=== PATIENT | female | born 1995 | race Asian ===

== ENCOUNTER 2017-01-02 18:03 | Inpatient (IN) | payer BC, OTHER ==
[2017-01-02] MEDS ORDERED: SODIUM CHLORIDE 0.9% 1,000 ML IV STA ×2 (18:35)
--- NOTE | 2017-01-02 18:38 | ED ---
General Adult HPI - General Chief complaint: Abdominal Pain Stated complaint: female Time Seen by Provider: 01/02/17 18:24 Source: patient, RN notes reviewed Mode of arrival: ambulatory Limitations: no limitations - History of Present Illness Initial comments: Patient is a 21-year-old female who presents emergency room today with chief complaint of a possible tubo-ovarian abscess. She states that he had an outpatient CT performed today at [facility]. She states she was called by the family doctor advised come here to the emergency room. Patient does admit pain started approximately a week ago. She describes it as sharp. Currently rates as 6/10. States she's currently comfortable at this time does not want pain medication. She does admit some nausea. Admits to a fever yesterday. Denies any other complaints. Patient denies any recent chills, shortness of breath, chest pain, back pain, vomiting, numbness or tingling, dysuria or hematuria, constipation or diarrhea, headaches or visual changes, or any other complaints. - Related Data Home Medications Medication Instructions Recorded Confirmed No Known Home Medications [No 01/02/17 01/02/17 Known Home Medications] Allergies Allergy/AdvReac Type Severity Reaction Status Date / Time No Known Allergies Allergy Verified 01/02/17 19:20 Review of Systems ROS Statement: Those systems with pertinent positive or pertinent negative responses have been documented in the HPI. ROS Other: All systems not noted in ROS Statement are negative. Past Medical History Past Medical History: No Reported History History of Any Multi-Drug Resistant Organisms: None Reported Past Surgical History: No Surgical Hx Reported Past Anesthesia/Blood Transfusion Reactions: No Reported Reaction Past Psychological History: No Psychological Hx Reported Smoking Status: Current every day smoker Past Drug Use History: None Reported - Past Family History Mother Family Medical History: No Reported History General Exam - General Exam Comments Initial Comments: General: The patient is awake and alert, in no distress, and does not appear acutely ill. Eye: Pupils are equal, round and reactive to light, extra-ocular movements are intact. No nystagmus. There is normal conjunctiva bilaterally. No signs of icterus. Ears, nose, mouth and throat: There are moist mucous membranes and no oral lesions. Neck: The neck is supple, there is no tenderness or JVD. Cardiovascular: There is a regular rate and rhythm. No murmur, rub or gallop is appreciated. Respiratory: Lungs are clear to auscultation, respirations are non-labored, breath sounds are equal. No wheezes, stridor, rales, or rhonchi. Gastrointestinal: Normal. Exam. Normal bowel sounds. Abdomen soft on palpation. Patient does have mild tenderness on the right side of abdomen. No rebound tenderness. No guarding. Musculoskeletal: Normal ROM, no tenderness. Strength 5/5. Sensation intact. Pulses equal bilaterally 2+. Neurological: A&O x 3. CN II-XII intact, There are no obvious motor or sensory deficits. Coordination appears grossly intact. Speech is normal. Skin: Skin is warm and dry and no rashes or lesions are noted. Psychiatric: Cooperative, appropriate mood & affect, normal judgment. Limitations: no limitations Course Vital Signs 01/02/17 01/02/17 18:20 19:09 Temperature 98.3 F 98.3 F Pulse Rate 129 H 104 H Respiratory 20 18 Rate Blood Pressure 115/65 130/79 O2 Sat by Pulse 100 100 Oximetry Medical Decision Making - Medical Decision Making Patient's CAT scan from [facility] was reviewed 1. Inflammatory process within the pelvis with a few rim enhancing fluid collections, largest measuring 6 cm wide in the cul-de-sac with a U-shaped configuration, largest towards the right. 2. Portion of the normal air-filled appendix is seen. The entirety appendix not visualized. 3. Clinical correlation recommended to rule out etiology with some differential considerations including PID and tubo-ovarian abscess. Given her acute diverticulitis is considered less likely as portions of the appendix are visualized. Patient's ultrasound reviewed and does show cystic structure on the right. Good collateral flow. Results were discussed with patient. Her labs been reviewed. Patient will continue on antibiotics of both cefoxitin and doxycycline covering for possible PID related infection. Case was discussed with attending physician discuss case with admitting physician Dr. Marrero will admit the patient with consult from [facility]. Patient is seeing both Dr. Mariscal in the past. - Lab Data Result diagrams: 01/02/17 19:00 01/02/17 19:00 Lab Results 01/02/17 01/02/17 01/02/17 Range/Units 18:45 18:45 19:00 WBC 7.3 (3.8-10.6) k/uL RBC 4.43 (3.80-5.40) m/uL Hgb 9.9 L (11.4-16.0) gm/dL Hct 32.4 L (34.0-46.0) % MCV 73.1 L (80.0-100.0) fL MCH 22.3 L (25.0-35.0) pg MCHC 30.5 L (31.0-37.0) g/dL RDW 13.7 (11.5-15.5) % Plt Count 330 (150-450) k/uL Neutrophils % 72 % Lymphocytes % 19 % Monocytes % 5 % Eosinophils % 2 % Basophils % 0 % Neutrophils # 5.3 (1.3-7.7) k/uL Lymphocytes # 1.4 (1.0-4.8) k/uL Monocytes # 0.4 (0-1.0) k/uL Eosinophils # 0.1 (0-0.7) k/uL Basophils # 0.0 (0-0.2) k/uL Hypochromasia Marked Microcytosis Slight Sodium (137-145) mmol/L Potassium (3.5-5.1) mmol/L Chloride (98-107) mmol/L Carbon Dioxide (22-30) mmol/L Anion Gap mmol/L BUN (7-17) mg/dL Creatinine (0.52-1.04) mg/dL Est GFR (MDRD) Af Amer (>60 ml/min/1.73 sqM) Est GFR (MDRD) Non-Af (>60 ml/min/1.73 sqM) Glucose (74-99) mg/dL Calcium (8.4-10.2) mg/dL Total Bilirubin (0.2-1.3) mg/dL AST (14-36) U/L ALT (9-52) U/L Alkaline Phosphatase (38-126) U/L Total Protein (6.3-8.2) g/dL Albumin (3.5-5.0) g/dL Urine Color Yellow Urine Appearance Clear (Clear) Urine pH 6.0 (5.0-8.0) Ur Specific [place] >1.050 H (1.001-1.035) Urine Protein Trace H (Negative) Urine Glucose (UA) Negative (Negative) Urine Ketones Negative (Negative) Urine Blood Moderate H (Negative) Urine Nitrite Negative (Negative) Urine Bilirubin Negative (Negative) Urine Urobilinogen <2.0 (<2.0) mg/dL Ur Leukocyte Esterase Negative (Negative) Urine RBC 11 H (0-5) /hpf Urine WBC 4 (0-5) /hpf Ur Squamous Epith Cells 1 (0-4) /hpf Urine HCG, Qual Not Detected (Not Detectd) 01/02/17 Range/Units 19:00 WBC (3.8-10.6) k/uL RBC (3.80-5.40) m/uL Hgb (11.4-16.0) gm/dL Hct (34.0-46.0) % MCV (80.0-100.0) fL MCH (25.0-35.0) pg MCHC (31.0-37.0) g/dL RDW (11.5-15.5) % Plt Count (150-450) k/uL Neutrophils % % Lymphocytes % % Monocytes % % Eosinophils % % Basophils % % Neutrophils # (1.3-7.7) k/uL Lymphocytes # (1.0-4.8) k/uL Monocytes # (0-1.0) k/uL Eosinophils # (0-0.7) k/uL Basophils # (0-0.2) k/uL Hypochromasia Microcytosis Sodium 138 (137-145) mmol/L Potassium 4.0 (3.5-5.1) mmol/L Chloride 103 (98-107) mmol/L Carbon Dioxide 28 (22-30) mmol/L Anion Gap 7 mmol/L BUN 9 (7-17) mg/dL Creatinine 0.76 (0.52-1.04) mg/dL Est GFR (MDRD) Af Amer >60 (>60 ml/min/1.73 sqM) Est GFR (MDRD) Non-Af >60 (>60 ml/min/1.73 sqM) Glucose 82 (74-99) mg/dL Calcium 8.7 (8.4-10.2) mg/dL Total Bilirubin 0.3 (0.2-1.3) mg/dL AST 19 (14-36) U/L ALT 17 (9-52) U/L Alkaline Phosphatase 66 (38-126) U/L Total Protein 7.9 (6.3-8.2) g/dL Albumin 3.7 (3.5-5.0) g/dL Urine Color Urine Appearance (Clear) Urine pH (5.0-8.0) Ur Specific [place] (1.001-1.035) Urine Protein (Negative) Urine Glucose (UA) (Negative) Urine Ketones (Negative) Urine Blood (Negative) Urine Nitrite (Negative) Urine Bilirubin (Negative) Urine Urobilinogen (<2.0) mg/dL Ur Leukocyte Esterase (Negative) Urine RBC (0-5) /hpf Urine WBC (0-5) /hpf Ur Squamous Epith Cells (0-4) /hpf Urine HCG, Qual (Not Detectd) Disposition Clinical Impression: Tubo-ovarian abscess Disposition: ADMITTED IP TO THIS HOSP Condition: Stable Time of Disposition: 20:01
[2017-01-02 19:15] LABS: Appearance,Urine Clear (Clear); Bilirubin,Urine Negative (Negative); Glucose,Urine (UA) Negative (Negative); Ketones,Urine Negative (Negative); Leukocyte Esterase,Urine Negative (Negative); Nitrite,Urine Negative (Negative); Particle Count 1052; Protein,Urine Trace (Negative); RBC,Urine 11 /hpf (0-5); Squamous Epithelial Cell,Urine 1 /hpf (0-4); UA Billing (MACRO vs. MICRO) MICRO; Urobilinogen,Urine <2.0 mg/dL (<2.0); WBC,Urine 4 /hpf (0-5)
[2017-01-02 19:17] LABS: Specific Gravity,Urine >1.050 (1.001-1.035)
[2017-01-02] MEDS ORDERED: ONDANSETRON 4 MG/2 ML VIAL IVP STA (19:20)
[2017-01-02] MEDS ORDERED: HYDROmorphone 1 MG/ML 1 ML SYRINGE IVP STA (19:20)
[2017-01-02 19:23] LABS: Basophils % (A) 0 %; CH 22.1; CHCM 30.4; Eosinophils # (A) 0.1 k/uL (0-0.7); Eosinophils % (A) 2 %; HCT 32.4 % (34.0-46.0); HDW 2.72; HGB 9.9 gm/dL (11.4-16.0); Hypochromasia Marked; Luc # (Auto) 0.15; Luc % (Auto) 2; Lymphocytes # (A) 1.4 k/uL (1.0-4.8); Lymphocytes % (A) 19 %; MCH 22.3 pg (25.0-35.0); MCHC 30.5 g/dL (31.0-37.0); MCV 73.1 fL (80.0-100.0); Mean Platelet Volume 6.5; Microcytosis Slight; Monocytes # (A) 0.4 k/uL (0-1.0); Monocytes % (A) 5 %; Neutrophils # (A) 5.3 k/uL (1.3-7.7); Neutrophils % (A) 72 %; RBC 4.43 m/uL (3.80-5.40); RDW 13.7 % (11.5-15.5); WBC 7.3 k/uL (3.8-10.6); WBC (Perox) 7.54
[2017-01-02 19:25] LABS: ALT 17 U/L (9-52); AST 19 U/L (14-36); Alkaline Phosphatase 66 U/L (38-126); Anion Gap 7 mmol/L; Blood Urea Nitrogen 9 mg/dL (7-17); Calcium 8.7 mg/dL (8.4-10.2); Carbon Dioxide 28 mmol/L (22-30); Chloride 103 mmol/L (98-107); Glucose 82 mg/dL (74-99); Non-African American GFR(MDRD) >60 (>60 ml/min/1.73 sqM); Sodium 138 mmol/L (137-145); Total Bilirubin 0.3 mg/dL (0.2-1.3); Total Protein 7.9 g/dL (6.3-8.2)
[2017-01-02] MEDS ORDERED: DOXYCYCLINE 100 MG in SODIUM CHLORIDE 0.9% 100 ML IVPB ONE (20:00)
[2017-01-02] MEDS ORDERED: NALOXONE 0.4 MG/ML 1 ML VIAL IV PRN (20:13)
[2017-01-02] MEDS ORDERED: SODIUM CHLORIDE 0.9% 1,000 ML IV ONE (20:13)
[2017-01-02] MEDS ORDERED: ONDANSETRON 4 MG/2 ML VIAL IVP PRN (20:13)
[2017-01-02] MEDS ORDERED: ACETAMINOPHEN TAB 325 MG TAB PO PRN (20:13)
--- NOTE | 2017-01-02 20:27 | US ---
EXAMINATION TYPE: US TRANSVAGINAL DATE OF EXAM: 01/02/2017 7:54 PM COMPARISON: NONE CLINICAL HISTORY: 21 yo with pain. UPT/B-HCG unknown at time of imaging. TECHNIQUE: Transvaginal (TV) Date of LMP: 12/28/2016 EXAM MEASUREMENTS: Uterus: 8.4 x 4.7 x 6.2 cm Endometrial Stripe: 0.7 cm Right Ovary: 4.7 x 2.7 x 3.8 cm Left Ovary: 3.2 x 1.3 x 1.3 cm 1. Uterus: Anteverted wnl 2. Endometrium: wnl. No focal endometrial findings. 3. Right Ovary: Two complex cystic areas visualized within the right ovary, largest measuring 2.1 x 1.7 x 1.1 cm. Adjacent to the right ovary within the right adnexa, there is a complex area visualized measuring 3.7 x 2.6 x 6.2 cm, with low-level echoes scattered within the area and with no Doppler p erfusion of the area. 4. Left Ovary: wnl Spectral, color and waveform doppler imaging shows good arterial and venous flow within the ovaries ; there is no evidence for ovarian torsion. 5. Bilateral Adnexa: See above 6. Posterior cul-de-sac: Moderate amount of free fluid visualized IMPRESSION: ASSUMING NEGATIVE UPT, SONOGRAPHIC FINDINGS POINT TOWARD RUPTURED RIGHT OVARIAN FUNCTIONAL CYST WITH MILDLY COMPLEX CULDESAC FLUID R > L, SUGGESTING HEMOPERITONEUM.
[2017-01-02 21:58] VITALS: BMI 21.3
[2017-01-02] MEDS ORDERED: VENLAFAXINE HCL ER 150 MG CAP PO SCH (22:45)
[2017-01-02] MEDS ORDERED: VENLAFAXINE 150 MG PO SCH (23:00)
[2017-01-02] MEDS: HYDROmorphone 1 MG/ML 1 ML SYRINGE IV PRN (23:18)
[2017-01-03] MEDS: HYDROmorphone 1 MG/ML 1 ML SYRINGE IV PRN ×3 (07:39→20:44)
[2017-01-03] MEDS: DOXYCYCLINE 100 MG in SODIUM CHLORIDE 0.9% 100 ML IVPB SCH ×2 (09:37→20:43)
[2017-01-03] MEDS: VENLAFAXINE HCL ER 75 MG CAP PO SCH (09:37)
--- NOTE | 2017-01-03 14:00 | P.OBCN ---
History of Present Illness Consult date: 01/03/17 Requesting physician: Debora Marrero Reason for consult: pelvic pain, ovarian cyst Chief complaint: She has had right upper quadrant pain for 7-10 days History of present illness: 21 year old presented to her PCP with RUQ pain. Her PCP sent her for a CT scan at [facility]. I do not have that report to review but US at [facility] showed right ovarian cyst, probably ruptured with some complex fluid. She was admitted for possible tubovarian abscess vs ruptured hemorrhagic cyst. She has been on IV antibiotics since admission. Her pain is improving, she has been and remains afebrile. Her pain was never in her pelvis though, was only in the RUQ and intermittent. No problems with bowel movements or urination and she is on an ocp. No new sexual partners. Review of Systems All systems: negative Constitutional: Denies chills, Denies fever Eyes: denies blurred vision, denies pain Ears, nose, mouth and throat: Denies headache, Denies sore throat Cardiovascular: Denies chest pain, Denies shortness of breath Respiratory: Denies cough Gastrointestinal: Denies abdominal pain, Denies diarrhea, Denies nausea, Denies vomiting Genitourinary: Denies dysuria, Denies hematuria Musculoskeletal: Denies myalgias Integumentary: Denies pruritus, Denies rash Neurological: Denies numbness, Denies weakness Psychiatric: Denies anxiety, Denies depression Endocrine: Denies fatigue, Denies weight change Past Medical History Past Medical History: No Reported History History of Any Multi-Drug Resistant Organisms: None Reported Past Surgical History: No Surgical Hx Reported Past Anesthesia/Blood Transfusion Reactions: No Reported Reaction Past Psychological History: ADD/ADHD, Anxiety, Depression Additional Psychological History / Comment(s): monitored by Dr. Marrero Smoking Status: Current every day smoker Past Alcohol Use History: None Reported Past Drug Use History: None Reported - Past Family History Father Family Medical History: No Reported History Mother Family Medical History: No Reported History Medications and Allergies Home Medications Medication Instructions Recorded Confirmed Type Dextroamphetamine/Amphetamine 30 mg PO QAM 01/02/17 01/02/17 History [Adderall Xr] Ibuprofen [Motrin] 600 mg PO Q8HR PRN 01/02/17 01/02/17 History Venlafaxine HCl ER [Effexor Xr] 75 mg PO DAILY 01/02/17 01/02/17 History Venlafaxine HCl ER [Effexor Xr] 150 mg PO DAILY 01/02/17 01/02/17 History Norgestimate-Ethinyl Estradiol 01/03/17 History [Sprintec 28 Day Tablet] Norgestimate-Ethinyl Estradiol 1 01/03/17 History [Sprintec 28 Day Tablet] Allergies Allergy/AdvReac Type Severity Reaction Status Date / Time No Known Allergies Allergy Verified 01/02/17 19:20 Exam Osteopathic Statement: *. No significant issues noted on an osteopathic structural exam other than those noted in the History and Physical/Consult. - Vital Signs Vital signs: Vital Signs Temp Pulse Pulse Pulse Pulse Resp BP 01/03/17 12:27 97.6 F 85 01/03/17 08:23 97.3 F L 96 12 01/03/17 04:00 70 16 01/03/17 00:00 98.0 F 98 16 01/02/17 21:34 98.8 F 90 18 01/02/17 21:30 98.8 F 90 18 01/02/17 20:42 97.5 F L 109 H 16 119/70 BP Pulse Ox 01/03/17 12:27 108/60 95 01/03/17 08:23 104/67 96 01/03/17 04:00 01/03/17 00:00 111/64 98 01/02/17 21:34 116/68 98 01/02/17 21:30 116/68 98 01/02/17 20:42 97 Intake and Output 01/02/17 01/03/17 01/03/17 22:59 06:59 14:59 Intake Total 240 Balance 240 Intake: Oral 240 Other: Voiding Method Toilet # Voids 1 Weight 57.2 kg Heart: RRR Lungs: CTAB ABdomen: soft, nontender to palpation, no rebound or rigidity, no bloating Extremeties: neg agus's Results Result Diagrams: 01/02/17 19:00 01/02/17 19:00 Abnormal Lab Results - Last 24 Hours (Table) 01/03/17 Range/Units 12:36 C-Reactive Protein 37.0 H (<10.0) mg/L Assessment and Plan (1) Tubo-ovarian abscess Status: Acute Plan: 1. This could be a tubovarian absess or ruptured ovarian cyst. Current treatment is IV antibiotics and pain medication. I would recommend to continue this course until 24-48 hours of IV abx are in. After this, pain meds and antibiotics can be changed to oral and she can follow up with me outpatient at that point in about 7-10 days.
[2017-01-03] MEDS ORDERED: IBUPROFEN 600 MG TAB PO PRN (20:22)
--- NOTE | 2017-01-03 20:23 | P.HPIM ---
History of Present Illness H&P Date: 01/03/17 Chief Complaint: Pelvic pain, abnormal CAT scan of the pelvis This is a pleasant 21-year-old lady well-known to my practice, she has underlying history off YULIANA, and iron deficiency anemia, With 1 para 1 admitted secondary to abnormal CAT scan. She presented to our office on one day prior to admission for which she had pelvic pain for approximately one and half weeks, she was given Motrin for pain, and was subsequently investigated using the CAT scan, patient has had low-grade fever, pain is nitrite lower quadrant area, she has postcoital pain without any vaginal discharge, her last Pap smear was performed by Dr. Flores approximately one and half years ago after her last delivery, she assumes to have one partner without any prior history of STDs in the past. CAT scan imaging performed at [facility] shows inflammatory reaction noted with rim-enhancing lesion largest measuring 6 cm in the posterior cul-de-sac, larger towards the right differential diagnosis includes tubal via an abscess, normal appendix noted on CAT scan. Scan scan report is in the chart review. She was subsequently notified of these imaging studies and was sent to [facility] for the admission. In the emergency room I have notified the ER doctor regarding the plan admission requested cultures to be done along with her pelvic examination, ultrasound of the pelvic cavity shows 2 complex cyst areas within the right ovary largest measuring 2.1 x 1.7 x 1.1 cm and adjacent to the right ovary within the right adnexa complex mass measuring 3.7 x 2.6 x 6.2 cm bit low level close scattered within the the area, with Doppler no perfusion of the area left ovary shows good arterial and venous flow within the ovaries no evidence of ovarian torsion WBC count is normal no cultures were obtained from the emergency room for GC chlamydia, urine GC chlamydia was requested in the floor, after the backs were started. CRP and sed rate was requested, urinalysis is unremarkable Review of Systems Constitutional: Reports as per HPI, Denies anorexia, Denies chills, Denies chronic headaches, Denies chronic pain, Denies daytime sleepiness, Denies fatigue, Denies fever, Denies lethargy, Denies malaise, Denies night sweats, Denies poor appetite, Denies sweats, Denies weakness, Denies weight gain, Denies weight loss Ears, nose, mouth and throat: Reports as per HPI, Denies ant. neck pain, Denies bleeding gums, Denies dental pain, Denies dysphagia, Denies epistaxis, Denies headache, Denies hoarseness, Denies mouth pain, Denies nasal congestion, Denies nasal discharge, Denies neck fullness/pressure, Denies neck lump, Denies nose pain, Denies odynophagia, Denies post-nasal drip, Denies sinus pain, Denies sinus pressure, Denies swelling in mouth, Denies swelling in throat, Denies sore throat, Denies vertigo, Denies voice changes Cardiovascular: Reports as per HPI, Denies chest pain, Denies claudication, Denies decreased exercise tolerance, Denies dyspnea on exertion, Denies edema, Denies high blood pressure, Denies irregular heart beat, Denies leg edema, Denies lightheadedness, Denies orthopnea, Denies palpitations, Denies paroxysmal nocturnal dyspnea, Denies phlebitis, Denies rapid heart beat, Denies shortness of breath, Denies syncope Respiratory: Reports as per HPI, Denies congestion, Denies cough, Denies cough with sputum, Denies dyspnea, Denies excessive sputum, Denies hemoptysis, Denies home oxygen, Denies pain, Denies pain on inspiration, Denies pleurisy, Denies respiratory infections, Denies sleep apnea, Denies snoring, Denies wheezing Gastrointestinal: Reports as per HPI, Denies abdominal pain, Denies belching, Denies bloating, Denies BRBPR, Denies change in bowel habits, Denies coffee ground emesis, Denies constipation, Denies diarrhea, Denies dyspepsia, Denies early satiety, Denies excessive gas, Denies heartburn, Denies hematemesis, Denies hematochezia, Denies indigestion, Denies jaundice, Denies lactose intolerance, Denies loss of appetite, Denies melena, Denies nausea, Denies vomiting Genitourinary: Reports as per HPI, Denies abnormal vaginal bleeding, Denies decreased libido, Denies difficulty conceiving, Denies difficulty voiding, Denies dysmenorrhea, Denies dyspareunia, Denies dysuria, Denies flank pain, Denies genital sores, Denies hematuria, Denies hot flashes, Denies incomplete emptying, Denies kidney stones, Denies menorrhagia, Denies mixed incontinence, Denies nocturia, Denies pelvic pain, Denies post void dribbling, Denies , Denies prolapse symptoms, Denies stress incontinence, Denies urge incontinence , Denies urgency, Denies urinary frequency, Denies vaginal discharge, Denies vaginal dryness, Denies vaginal itching, Denies vaginal odor Menstruation: Reports as per HPI, Denies amenorrhea, Denies amenorrhea on BC, Denies currently menstrual, Denies cycle < 21 days, Denies cycle > 35 days, Denies cycle variable, Denies menses 1-7 days, Denies menses 8 or > days, Denies menses variable, Denies period heavy, Denies period light, Denies period normal, Denies period spotting, Denies post hysterectomy, Denies postmenopausal , Denies premenarcheal Musculoskeletal: Reports as per HPI, Denies arm numbness/tingling, Denies atrophy, Denies fractures, Denies frequent falls, Denies gait dysfunction, Denies hot joints, Denies leg numbness/tingling, Denies limitation of motion, Denies loss of height, Denies low back pain, Denies morning stiffness, Denies muscle cramps, Denies muscle weakness, Denies myalgias, Denies neck pain, Denies neck stiffness, Denies prior amputations, Denies redness of joints, Denies shooting arm pain, Denies shooting leg pain Integumentary: Reports as per HPI, Denies acne, Denies boils, Denies brittle nails, Denies change in hair/nails, Denies color changes, Denies darkening of skin, Denies depigmentation, Denies dryness, Denies foot/leg ulcers, Denies growths, Denies hirsutism, Denies lesions, Denies onychomycosis, Denies pruritus , Denies rash, Denies sores, Denies striae, Denies unusual bruising, Denies wounds Neurological: Reports as per HPI, Denies aphasia, Denies ataxia, Denies balance difficulties, Denies burning pain, Denies change in mentation, Denies change in smell/taste, Denies change in speech, Denies confusion, Denies convulsions, Denies double vision, Denies gait dysfunction, Denies head injury, Denies headaches, Denies hearing difficulties, Denies lack of coordination, Denies loss of vision, Denies memory loss, Denies migraines, Denies motor disturbance, Denies numbness, Denies paralysis, Denies paresthesias, Denies seizures, Denies sensory deficit, Denies spasticity, Denies syncope, Denies tic, Denies tingling , Denies transient paralysis, Denies tremors, Denies vertigo, Denies weakness, Denies visual changes Psychiatric: Reports as per HPI, Denies anhedonia, Denies anxiety, Denies anxiety attacks, Denies change in appetite, Denies change in libido, Denies change in sleep habits, Denies confusion, Denies depression, Denies difficulty concentrating, Denies disorientation, Denies hallucinations, Denies hopelessness , Denies hypersomnia, Denies insomnia, Denies irritability, Denies memory loss, Denies mood swings, Denies paranoia, Denies sadness/tearfulness, Denies sleep disturbances, Denies suicidal ideation Endocrine: Reports as per HPI, Denies cold intolerance, Denies deepening of the voice, Denies excessive sweating, Denies excessive thirst, Denies fatigue, Denies flushing, Denies heat intolerance, Denies high blood sugars, Denies increase in ring/shoe/hat size, Denies low blood sugars, Denies nocturia, Denies palpitations, Denies polydipsia, Denies polyphagia, Denies polyuria, Denies proptosis, Denies recent glucocorticoid use, Denies thyroid mass, Denies weight change Hematologic/Lymphatic: Reports as per HPI, Denies easy bleeding, Denies easy bruising, Denies lymphadenopathy, Denies lymphedema, Denies thrombophilia Allergic/Immunologic: Reports as per HPI, Denies allergic rhinitis, Denies anaphylaxis, Denies angioedema, Denies gluten intolerance, Denies persistent infections, Denies seasonal allergies, Denies urticaria, Denies wheezing Past Medical History Past Medical History: No Reported History History of Any Multi-Drug Resistant Organisms: None Reported Past Surgical History: No Surgical Hx Reported Past Anesthesia/Blood Transfusion Reactions: No Reported Reaction Past Psychological History: ADD/ADHD, Anxiety, Depression Additional Psychological History / Comment(s): monitored by Dr. Marrero Smoking Status: Current every day smoker Past Alcohol Use History: None Reported Past Drug Use History: None Reported - Past Family History Father Family Medical History: No Reported History Mother Family Medical History: No Reported History (Anemia) Sister(s) Family Medical History: No Reported History Brother(s) Family Medical History: No Reported History Daughter(s) Family Medical History: No Reported History Medications and Allergies Home Medications Medication Instructions Recorded Confirmed Type Dextroamphetamine/Amphetamine 30 mg PO QAM 01/02/17 01/02/17 History [Adderall Xr] Ibuprofen [Motrin] 600 mg PO Q8HR PRN 01/02/17 01/02/17 History Venlafaxine HCl ER [Effexor Xr] 75 mg PO DAILY 01/02/17 01/02/17 History Venlafaxine HCl ER [Effexor Xr] 150 mg PO DAILY 01/02/17 01/02/17 History Norgestimate-Ethinyl Estradiol 01/03/17 History [Sprintec 28 Day Tablet] Norgestimate-Ethinyl Estradiol 1 01/03/17 History [Sprintec 28 Day Tablet] Allergies Allergy/AdvReac Type Severity Reaction Status Date / Time No Known Allergies Allergy Verified 01/02/17 19:20 Physical Exam Vitals: Vital Signs Temp Pulse Pulse Pulse Pulse Resp BP 01/03/17 08:23 97.3 F L 96 12 01/03/17 04:00 70 16 01/03/17 00:00 98.0 F 98 16 01/02/17 21:34 98.8 F 90 18 01/02/17 21:30 98.8 F 90 18 01/02/17 20:42 97.5 F L 109 H 16 119/70 BP Pulse Ox 01/03/17 08:23 104/67 96 01/03/17 04:00 01/03/17 00:00 111/64 98 01/02/17 21:34 116/68 98 01/02/17 21:30 116/68 98 01/02/17 20:42 97 Intake and Output 01/02/17 01/03/17 01/03/17 22:59 06:59 14:59 Intake Total 240 Balance 240 Intake: Oral 240 Other: Voiding Method Toilet # Voids 1 Weight 57.2 kg - Constitutional General appearance: cooperative, no acute distress, thin - EENT Eyes: anicteric sclerae, EOMI, PERRLA, dentition normal ENT: no hard of hearing, hearing grossly normal, NA/AT, normal oropharynx, no other, no pharyngeal erythema, no thrush, no tonsillar exudates, no tonsillar swelling - Neck Neck: no lymphadenopathy, normal ROM, no other, no rigidity, no stridor, no thyromegaly - Respiratory Respiratory: bilateral: CTA, negative: diminished, dullness, rales, rhonchi - Cardiovascular Rhythm: regular Heart sounds: normal: S1, S2 Abnormal Heart Sounds: no systolic murmur, no diastolic murmur, no rub, no S3 Gallop, no S4 Gallop, no click, no other - Gastrointestinal General gastrointestinal: no absent bowel sounds, no decreased bowel sounds, no distended, no hepatomegaly, no hyperactive bowel sounds, no normal bowel sounds , organomegaly, no rigid, no scaphoid, soft, no splenomegaly, no tenderness, no umbilical hernia, no ventral hernia - Integumentary Integumentary: normal, normal turgor - Neurologic Neurologic: CNII-XII intact - Musculoskeletal Musculoskeletal: gait normal, strength equal bilaterally - Psychiatric Psychiatric: A&O x's 3, appropriate affect, intact judgment & insight Results CBC & Chem 7: 01/02/17 19:00 01/02/17 19:00 Labs: Laboratory Results WBC 7.3 k/uL (3.8-10.6) 01/02/17 19:00 RBC 4.43 m/uL (3.80-5.40) 01/02/17 19:00 Hgb 9.9 gm/dL (11.4-16.0) L 01/02/17 19:00 Hct 32.4 % (34.0-46.0) L 01/02/17 19:00 MCV 73.1 fL (80.0-100.0) L 01/02/17 19:00 MCH 22.3 pg (25.0-35.0) L 01/02/17 19:00 MCHC 30.5 g/dL (31.0-37.0) L 01/02/17 19:00 RDW 13.7 % (11.5-15.5) 01/02/17 19:00 Plt Count 330 k/uL (150-450) 01/02/17 19:00 Neutrophils % 72 % 01/02/17 19:00 Lymphocytes % 19 % 01/02/17 19:00 Monocytes % 5 % 01/02/17 19:00 Eosinophils % 2 % 01/02/17 19:00 Basophils % 0 % 01/02/17 19:00 Neutrophils # 5.3 k/uL (1.3-7.7) 01/02/17 19:00 Lymphocytes # 1.4 k/uL (1.0-4.8) 01/02/17 19:00 Monocytes # 0.4 k/uL (0-1.0) 01/02/17 19:00 Eosinophils # 0.1 k/uL (0-0.7) 01/02/17 19:00 Basophils # 0.0 k/uL (0-0.2) 01/02/17 19:00 Hypochromasia Marked 01/02/17 19:00 Microcytosis Slight 01/02/17 19:00 ESR 58 mm/hr (0-20) H 01/03/17 12:36 Sodium 138 mmol/L (137-145) 01/02/17 19:00 Potassium 4.0 mmol/L (3.5-5.1) 01/02/17 19:00 Chloride 103 mmol/L (98-107) 01/02/17 19:00 Carbon Dioxide 28 mmol/L (22-30) 01/02/17 19:00 Anion Gap 7 mmol/L 01/02/17 19:00 BUN 9 mg/dL (7-17) 01/02/17 19:00 Creatinine 0.76 mg/dL (0.52-1.04) 01/02/17 19:00 Est GFR (MDRD) Af Amer >60 (>60 ml/min/1.73 sqM) 01/02/17 19:00 Est GFR (MDRD) Non-Af >60 (>60 ml/min/1.73 sqM) 01/02/17 19:00 Glucose 82 mg/dL (74-99) 01/02/17 19:00 Calcium 8.7 mg/dL (8.4-10.2) 01/02/17 19:00 Total Bilirubin 0.3 mg/dL (0.2-1.3) 01/02/17 19:00 AST 19 U/L (14-36) 01/02/17 19:00 ALT 17 U/L (9-52) 01/02/17 19:00 Alkaline Phosphatase 66 U/L (38-126) 01/02/17 19:00 C-Reactive Protein 37.0 mg/L (<10.0) H 01/03/17 12:36 Total Protein 7.9 g/dL (6.3-8.2) 01/02/17 19:00 Albumin 3.7 g/dL (3.5-5.0) 01/02/17 19:00 Urine Color Yellow 01/02/17 18:45 Urine Appearance Clear (Clear) 01/02/17 18:45 Urine pH 6.0 (5.0-8.0) 01/02/17 18:45 Ur Specific [place] >1.050 (1.001-1.035) H 01/02/17 18:45 Urine Protein Trace (Negative) H 01/02/17 18:45 Urine Glucose (UA) Negative (Negative) 01/02/17 18:45 Urine Ketones Negative (Negative) 01/02/17 18:45 Urine Blood Moderate (Negative) H 01/02/17 18:45 Urine Nitrite Negative (Negative) 01/02/17 18:45 Urine Bilirubin Negative (Negative) 01/02/17 18:45 Urine Urobilinogen <2.0 mg/dL (<2.0) 01/02/17 18:45 Ur Leukocyte Esterase Negative (Negative) 01/02/17 18:45 Urine RBC 11 /hpf (0-5) H 01/02/17 18:45 Urine WBC 4 /hpf (0-5) 01/02/17 18:45 Ur Squamous Epith Cells 1 /hpf (0-4) 01/02/17 18:45 Urine HCG, Qual Not Detected (Not Detectd) 01/02/17 18:45 Thrombosis Risk Factor Assmnt - DVT/VTE Prophylaxis DVT/VTE Prophylaxis: Low risk, early ambulation encouraged - Choose All That Apply Any of the Below Risk Factors Present?: Yes Each Factor Represents 1 point: Oral contraceptives or hormone replacement therapy Other Risk Factors: No Other congenital or acquired thrombophilia - If yes, enter type in comment: No Thrombosis Risk Factor Assessment Total Risk Factor Score: 1 Thrombosis Risk Factor Assessment Level: Low Risk Assessment and Plan Plan: 1. Tubo-ovarian abscess against hemorrhagic cyst with no color flow Doppler noted on ultrasound, cannot rule out ovarian torsion, patient is currently receiving IV antibiotics Zosyn and Zithromax, cultures will be done for GC chlamydia, in CRP and sed rate as urinalysis is unremarkable, 2. ADD on maintenance Adacel 3. Generalized anxiety disorder with depression, stable on venlafaxine no changes were made 4. Iron deficiency anemia chronic, patient was receiving iron supplementation which is to be maintained, patient had normal hemoglobin electrophoresis noted on recent analysis 5. 1 para 1 6. Maintenance contraceptive for control changes made in Sprintec ECGs negative
[2017-01-03] MEDS: VENLAFAXINE HCL ER 150 MG CAP PO SCH (22:13)
[2017-01-04] MEDS: HYDROmorphone 1 MG/ML 1 ML SYRINGE IV PRN ×2 (01:30→04:56)
[2017-01-04 06:11] LABS: CH 22.1; CHCM 29.6; HCT 29.3 % (34.0-46.0); HDW 2.73; HGB 8.6 gm/dL (11.4-16.0); Hypochromasia Marked; MCH 22.1 pg (25.0-35.0); MCHC 29.4 g/dL (31.0-37.0); MCV 75.1 fL (80.0-100.0); Mean Platelet Volume 6.2; Microcytosis Slight; RDW 13.9 % (11.5-15.5); WBC 6.2 k/uL (3.8-10.6)
[2017-01-04 06:30] LABS: Anion Gap 5 mmol/L; Blood Urea Nitrogen 8 mg/dL (7-17); Calcium 8.1 mg/dL (8.4-10.2); Carbon Dioxide 26 mmol/L (22-30); Chloride 107 mmol/L (98-107); Glucose 87 mg/dL (74-99); Non-African American GFR(MDRD) >60 (>60 ml/min/1.73 sqM); Potassium 4.2 mmol/L (3.5-5.1); Sodium 138 mmol/L (137-145)
[2017-01-04] MEDS ORDERED: NORGESTIMATE ETHINYL ESTRADIOL PO SCH (09:00)
[2017-01-04] MEDS ORDERED: VENLAFAXINE HCL ER 75 MG CAP PO SCH (09:00)
[2017-01-04] MEDS ORDERED: NON-FORMULARY DRUG (Dextroamphetamine/Amphetamine [Adderall Xr] 30 MG) PO SCH (09:00)
[2017-01-04] MEDS ORDERED: HYDROcodone/APAP 5-325MG 1 EACH TAB PO PRN (09:03)
--- NOTE | 2017-01-04 09:03 | P.PN ---
Progress Note - Text 21 year old with possible TOA. She has been treated with IV antibiotics for over 24 hours. There is no elevation in her WBCs and she remains afebrile. I believe she could be changed to oral antibiotics and follow up outpatient. I will change her pain meds and ensure her PCP agrees with the plan. After discharge, I would like Radha to follow up with me in 2 weeks.
[2017-01-04 09:06] VITALS: BP 111/68; PULSE 91; RESP 12; TEMP 98.5
[2017-01-04] MEDS ORDERED: DOXYCYCLINE 50 MG CAP PO SCH (09:45)
[2017-01-04] MEDS: VENLAFAXINE HCL ER 150 MG CAP PO SCH (10:28)
[2017-01-04] MEDS: VENLAFAXINE HCL ER 75 MG CAP PO SCH (10:28)
--- NOTE | 2017-01-04 14:32 | P.DS ---
Providers Date of admission: 01/02/17 20:14 Expected date of discharge: 01/04/17 Attending physician: Debora Marrero Primary care physician: Debora Marrero [facility] Course: This is a pleasant 21-year-old lady well-known to my practice, she has underlying history off [place], and iron deficiency anemia, With 1 para 1 admitted secondary to abnormal CAT scan. She presented to our office on one day prior to admission for which she had pelvic pain for approximately one and half weeks, she was given Motrin for pain, and was subsequently investigated using the CAT scan, patient has had low-grade fever, pain is nitrite lower quadrant area, she has postcoital pain without any vaginal discharge, her last Pap smear was performed by Dr. Flores approximately one and half years ago after her last delivery, she assumes to have one partner without any prior history of STDs in the past. CAT scan imaging performed at [facility] shows inflammatory reaction noted with rim-enhancing lesion largest measuring 6 cm in the posterior cul-de-sac, larger towards the right differential diagnosis includes tubal via an abscess, normal appendix noted on CAT scan. Scan scan report is in the chart review. She was subsequently notified of these imaging studies and was sent to [facility] for the admission. In the emergency room I have notified the ER doctor regarding the plan admission requested cultures to be done along with her pelvic examination, ultrasound of the pelvic cavity shows 2 complex cyst areas within the right ovary largest measuring 2.1 x 1.7 x 1.1 cm and adjacent to the right ovary within the right adnexa complex mass measuring 3.7 x 2.6 x 6.2 cm bit low level close scattered within the the area, with Doppler no perfusion of the area left ovary shows good arterial and venous flow within the ovaries no evidence of ovarian torsion WBC count is normal no cultures were obtained from the emergency room for GC chlamydia, urine GC chlamydia was requested in the floor, after the backs were started. CRP and sed rate was requested, urinalysis is unremarkable 01/04: Dr. Mariscal has rechecked the patient this morning with recommendations for oral antibiotics and follow-up as an outpatient. White count is at 6.2. Again requested urine specimen for GC and chlamydia. Patient will be discharged home today on oral antibiotics. Discharge diagnoses: 1. Tubo-ovarian abscess or ruptured ovarian cyst 2. ADD 3. Generalized anxiety disorder with recurrent depression 4. Iron deficiency anemia chronic 5. 1 para 1 6. Maintenance contraceptive for control Discharge plan: Return home Impression and plan of care have been directed as dictated by the signing physician. Camryn Izaguirre nurse practitioner acting as scribe for signing physician. Patient Condition at Discharge: Good Plan - Discharge Summary New Discharge Prescriptions: Levofloxacin [Levaquin] 500 mg PO DAILY #14 tab metroNIDAZOLE [Flagyl] 500 mg PO BID #28 tab Discharge Medication List Dextroamphetamine/Amphetamine [Adderall Xr] 30 mg PO QAM 01/02/17 [History] Ibuprofen [Motrin] 600 mg PO Q8HR PRN 01/02/17 [History] Venlafaxine HCl ER [Effexor Xr] 75 mg PO DAILY 01/02/17 [History] Venlafaxine HCl ER [Effexor Xr] 150 mg PO DAILY 01/02/17 [History] Norgestimate-Ethinyl Estradiol [Sprintec 28 Day Tablet] 01/03/17 [History] Norgestimate-Ethinyl Estradiol [Sprintec 28 Day Tablet] 1 01/03/17 [History] Levofloxacin [Levaquin] 500 mg PO DAILY #14 tab 01/04/17 [Rx] metroNIDAZOLE [Flagyl] 500 mg PO BID #28 tab 01/04/17 [Rx] Follow up Appointment(s)/Referral(s): Debora Marrero MD [Primary Care Provider] - 1 Week (January AT 2:00) Zo Mariscal DO [Doctor of Osteopathic Medicine] - 2 Weeks (January AT 10:45) Activity/Diet/Wound Care/Special Instructions: DISCHARGE HOME ..TAKE ALL ANTIBIOTICS PRESCRIBED UNTIL GONE. FOLLOW UP SCHEDULED UNLESS WORSENING SYMPTOMS, PROBLEMS OR CONCERNS. Discharge Disposition: HOME SELF-CARE
== END 2017-01-04 15:45 | disposition home or self-care (01) | DRG 758 ==
LOC: EC 18:03 → 6PED 20:14
PROVIDERS: ADMIT Family Medicine; ATTEND Family Medicine
DX: N70.93 Salpingitis and oophoritis, unspecified (principal); F33.9 Major depressive disorder, recurrent, unspecified; D50.9 Iron deficiency anemia, unspecified; F17.200 Nicotine dependence, unspecified, uncomplicated; F41.1 Generalized anxiety disorder; F90.9 Attention-deficit hyperactivity disorder, unspecified type; N83.201 Unspecified ovarian cyst, right side; Z79.899 Other long term (current) drug therapy; Z79.3 Long term (current) use of hormonal contraceptives
CPT/HCPCS: 36415; 76830; 80048; 80053; 81001; 81025; 85025; 85027; 85652; 86140; 87040; 87077; 87086; 87186; 87491; 87591; 93975; 96365; 96375; 99285

== ENCOUNTER → 2017-03-23 | Outpatient (CLI) | payer BC ==
--- NOTE | 2017-03-23 15:08 | US ---
EXAMINATION TYPE: US transvaginal DATE OF EXAM: 03/23/2017 COMPARISON: 01/02/2017 CLINICAL HISTORY: Sexually Transmitted Chlamydial Infection A56.8. F/U previous abnormal right ovary TECHNIQUE: Transvaginal (TV) Date of LMP: 03/06/2017 EXAM MEASUREMENTS: Uterus: 8.3 x 4.0 x 5.5 cm Endometrial Stripe: 0.7 cm Right Ovary: 3.9 x 3.1 x 2.9 cm Left Ovary: 2.6 x 1.8 x 1.3 cm 1. Uterus: Anteverted wnl 2. Endometrium: wnl 3. Right Ovary: Simple cyst= 2.8 x 2.3 x 2.6 cm 4. Left Ovary: wnl 5. Bilateral Adnexa: wnl 6. Posterior cul-de-sac: Scan amount of free fluid IMPRESSION: 1. Simple appearing cyst right ovary likely functional in nature. 2. Tiny amount of free fluid.
== END | disposition home or self-care (01) ==
LOC: RADUSWWP 14:18
PROVIDERS: ATTEND Family Medicine
DX: N83.201 Unspecified ovarian cyst, right side (principal); A56.8 Sexually transmitted chlamydial infection of other sites
CPT/HCPCS: 76830

== ENCOUNTER → 2017-09-11 | Outpatient (CLI) | payer BC ==
--- NOTE | 2017-09-11 13:55 | US ---
EXAMINATION TYPE: US transvaginal DATE OF EXAM: 09/11/2017 COMPARISON: NONE CLINICAL HISTORY: R10.2 PELVIC PAIN. Pelvic pain for a few months TECHNIQUE: Transvaginal (TV) Date of LMP: August EXAM MEASUREMENTS: Uterus: 8.2 x 3.9 x 5.0 cm Endometrial Stripe: 0.6 cm Right Ovary: 4.0 x 2.7 x 2.7 cm Left Ovary: 3.0 x 1.7 x 1.6 cm 1. Uterus: Anteverted Small amount of fluid within cervical canal 2. Endometrium: appears wnl 3. Right Ovary: cystic area = 2.0 x 2.0 x 2.1cm 4. Left Ovary: follicles noted 5. Bilateral Adnexa: wnl 6. Posterior cul-de-sac: small amount of free fluid IMPRESSION: 1. Endometrial thickness is within normal limits. Small amount of fluid is seen within the cervical c anal, possibly related to the phase of menses. 2. Dominant physiologic simple appearing right ovarian follicle measuring up to 2.0 cm. 3. Small amount of free fluid within the posterior cul-de-sac, likely physiologic in nature.
== END | disposition home or self-care (01) ==
LOC: RADUSWWP 12:50
PROVIDERS: ATTEND Family Medicine
DX: R10.2 Pelvic and perineal pain (principal)
CPT/HCPCS: 76830

== ENCOUNTER 2018-01-29 02:27 | Emergency (ER) | payer BC ==
[2018-01-29 02:34] VITALS: BP 136/92; PULSE 100; RESP 18; TEMP 98.3
[2018-01-29] MEDS ORDERED: ACETAMINOPHEN TAB 500 MG TAB PO STA (02:51)
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
== END 2018-01-29 03:06 | disposition home or self-care (01) ==
LOC: EC 02:27
DX: S01.01XA Laceration without foreign body of scalp, initial encounter (principal); F32.9 Major depressive disorder, single episode, unspecified; F41.9 Anxiety disorder, unspecified; F90.9 Attention-deficit hyperactivity disorder, unspecified type; Z79.899 Other long term (current) drug therapy; Z87.891 Personal history of nicotine dependence; W22.8XXA Striking against or struck by other objects, initial encounter
CPT/HCPCS: 12001; 99282

== ENCOUNTER 2018-06-12 20:56 | Emergency (ER) | payer BC ==
[2018-06-12 21:05] VITALS: TEMP 98.3
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
[2018-06-12] MEDS ORDERED: DIPH,PERTUS(ACELL)TETVAC-LF 0.5 ML VIAL IM ONE (22:42)
[2018-06-12 23:21] VITALS: BP 121/60; PULSE 88; RESP 16
== END 2018-06-12 23:21 | disposition home or self-care (01) ==
LOC: EC 20:56
DX: S01.01XA Laceration without foreign body of scalp, initial encounter (principal); S00.81XA Abrasion of other part of head, initial encounter; F41.9 Anxiety disorder, unspecified; F32.9 Major depressive disorder, single episode, unspecified; Z23 Encounter for immunization; Z79.899 Other long term (current) drug therapy; Z87.891 Personal history of nicotine dependence; Y04.0XXA Assault by unarmed brawl or fight, initial encounter; Y92.009 Unspecified place in unspecified non-institutional (private) residence as the place of occurrence of the external cause
CPT/HCPCS: 12001; 90471; 90715; 99283

== ENCOUNTER → 2018-08-22 | Outpatient (CLI) | payer BC | END | disposition home or self-care (01) | LOC: LABWHC1 16:21 | PROVIDERS: ATTEND Obstetrics & Gynecology | DX: Z34.80 Encounter for supervision of other normal pregnancy, unspecified trimester (principal) | CPT/HCPCS: 36415; 84702 ==

== ENCOUNTER → 2018-12-20 | Outpatient (CLI) | payer BC, OTHER ==
[2018-12-20 08:49] LABS: HCT 33.3 % (34.0-46.0); HGB 10.1 gm/dL (11.4-16.0); Hypochromasia Slight; MCH 22.1 pg (25.0-35.0); MCHC 30.5 g/dL (31.0-37.0); MCV 72.5 fL (80.0-100.0); Mean Platelet Volume 6.8; Microcytosis Slight; Platelet Count 184 k/uL (150-450); RBC 4.59 m/uL (3.80-5.40); RDW 15.5 % (11.5-15.5); WBC 8.5 k/uL (3.8-10.6)
== END ==
LOC: LABWHC1 07:42
PROVIDERS: ATTEND Obstetrics & Gynecology
DX: Z34.82 Encounter for supervision of other normal pregnancy, second trimester (principal); Z3A.00 Weeks of gestation of pregnancy not specified
CPT/HCPCS: 36415; 82950; 85027

== ENCOUNTER 2019-03-23 18:43 | Inpatient (IN) | payer BC, OTHER ==
[2019-03-23] MEDS ORDERED: CARBOPROST TROMETHAMINE 250 MCG/ML 1 ML AMP IM PRN (19:01)
[2019-03-23] MEDS ORDERED: OXYTOCIN 10 UNIT/ML 1 ML VIAL IM PRN (19:01)
[2019-03-23] MEDS ORDERED: TERBUTALINE 1 MG/ML VIAL SQ PRN (19:01)
[2019-03-23] MEDS ORDERED: AMPICILLIN 2,000 MG in SODIUM CHLORIDE 0.9% 100 ML IVPB STA (19:01)
[2019-03-23] MEDS ORDERED: METHYLERGONOVINE 0.2 MG/ML 1 ML AMP IM PRN (19:01)
[2019-03-23] MEDS ORDERED: LIDOCAINE 0.5% (PF) 5 MG/ML (50 ML SDV) SQ PRN (19:01)
[2019-03-23] MEDS ORDERED: LACTATED RINGERS 1,000 ML IV SCH ×2 (19:15)
[2019-03-23 19:22] VITALS: BMI 25.2
[2019-03-23] MEDS ORDERED: BUTORPHANOL 1 MG/ML 1 ML VIAL IV PRN ×2 (19:27→21:47)
--- NOTE | 2019-03-23 19:39 | P.HPOB ---
History of Present Illness H&P Date: 03/23/19 Chief Complaint: Contractions, possible prolonged rupture membranes As patient is a pleasant 23-year-old 3 para 1 female estimated date of confinement 04/03/2019 estimated gestational age 38-2/7 weeks who presents to labor and delivery with complaints of regular painful contractions for couple hours. Patient also now tells us that she may have had leaking of fluid starting night and Monday however did not call at that time. care is, K by positive chlamydia in the first trimester however negative test of cure 2. care is otherwise been uncomplicated. Review of Systems Genitourinary: Reports Menstruation: Reports amenorrhea Past Medical History Past Medical History: No Reported History History of Any Multi-Drug Resistant Organisms: None Reported Past Surgical History: No Surgical Hx Reported Past Anesthesia/Blood Transfusion Reactions: No Reported Reaction Past Psychological History: ADD/ADHD, Anxiety, Depression Additional Psychological History / Comment(s): monitored by Dr. Marrero Smoking Status: Never smoker Past Alcohol Use History: Occasional Past Drug Use History: None Reported - Past Family History Father Family Medical History: No Reported History Sister(s) Family Medical History: No Reported History Brother(s) Family Medical History: No Reported History Daughter(s) Family Medical History: No Reported History Mother Family Medical History: No Reported History Medications and Allergies Home Medications Medication Instructions Recorded Confirmed Type Pnv No.95/Ferrous Fum/Folic AC 1 tab PO DAILY 03/23/19 03/23/19 History [ Multivitamin Tablet] Allergies Allergy/AdvReac Type Severity Reaction Status Date / Time No Known Allergies Allergy Verified 06/12/18 21:42 Exam Vital Signs Temp Pulse Resp BP 03/23/19 19:20 98.0 F 80 16 124/91 03/23/19 19:00 97.4 F L 100 16 124/91 Intake and Output 03/23/19 03/23/19 03/23/19 06:59 14:59 22:59 Other: Weight 66.678 kg - OBG Physical Exam Abdomen: bowel sounds normal, no diffuse tenderness, no bruit present, no guarding noted, no hepatomegaly, no splenomegaly, no mass Vulva: both: normal Cervix: Cervix is 8 cm dilated completely effaced 0 station there is a bulging bag of membranes and gross rupture membranes. Cervix: no lesion, no discharge Uterus: enlarged Results blood work shows she is A+, rubella immune, RPR nonreactive, hepatitis B negative, ultrasounds have been normal, Glucola was normal, group B strep was negative. Assessment and Plan Assessment: This is a pleasant 23-year-old 3 para 1 female 38-2/7 weeks gestation admitted to labor and delivery in active labor. Patient also has possible prolonged rupture membranes. Plan is IV antibiotics and anticipate vaginal delivery. (1) Normal labor Current Visit: No Status: Acute Code(s): O80 - ENCOUNTER FOR FULL-TERM UNCOMPLICATED DELIVERY SNOMED Code(s): 67289062 (2) 38 weeks gestation of Current Visit: Yes Status: Acute Code(s): Z3A.38 - 38 WEEKS GESTATION OF SNOMED Code(s): 43889332 (3) Prolonged premature rupture of membranes Current Visit: Yes Status: Acute Code(s): O42.00 - CAROL ROM, ONSET LABOR W/N 24 HR OF RUPT, UNSP WEEKS OF GEST SNOMED Code(s): 154021608
--- NOTE | 2019-03-23 19:40 | P.MSEPDOC ---
Presenting Problems - Arrival Data Date of Arrival on Unit: 03/23/19 Time of Arrival on Unit: 18:45 Mode of Transport: Ambulatory - Complaint OB-Reason for Admission/Chief Complaint: Possible Onset of Labor Medical History - Information : 3 Para: 1 Term: 1 : 0 Abortions: Spontaneous or Elective: 0 Number of Living Children: 1 - Gestational Age Gestational Age by SAMI (wks/days): 38 Weeks and 3 Days - History Complications: No Care Review of Systems - Review of Systems Constitutional: No problems Breast: No problems ENT: No problems Cardiovascular: No problems Respiratory: No problems Gastrointestinal: No problems Genitourinary: No problems Musculoskeletal: No problems Neurological: No problems Skin: No problems Vital Signs - Temperature Temperature: 98.0 F Temperature Source: Tympanic - Pulse Right Brachial Pulse Rate: 100 Pulse Assessment Method: Automatic Cuff - Respirations Respiratory Rate: 16 Oxygen Delivery Method: Room Air - Blood Pressure Right Arm Blood Pressure: 124/91 Blood Pressure Mean: 102 Blood Pressure Source: Automatic Cuff Medical Screen Scoring (Pre) - Cervical Exam Dilation: 4-7 cm = 2 Effacement: More than 50% = 2 Membranes: Ruptured = 3 - Uterine Contractions Frequency: > or = 36 weeks =2 Duration: > 40 seconds = 2 Intensity: Contraction palpated strong = 1 - Maternal Vital Signs Maternal Temperature: N/A Maternal Blood Pressure: N/A Signs of Preeclampsia: N/A Maternal Respirations: N/A - Maternal Trauma Maternal Trauma: N/A - Assessment - Baby A Baseline FHR: 145 Heart Rate - NICHD Category: Category I (Normal) = 0 NST: Reactive Position: N/A Station: N/A - Total Score - Baby A Total Score - Baby A: 12 - Total Score - Baby B Total Score - Baby B: 12 - Total Score - Baby C Total Score - Baby C: 12 - Level of Risk - Baby A Level of Risk - Baby A: High (10+) - Level of Risk - Baby B Level of Risk - Baby B: High (10+) - Level of Risk - Baby C Level of Risk - Baby C: High (10+) Physician Notification (Pre) - Physician Notified Physician Notified Date: 03/23/19 Physician Notified Time: 19:00 Physician/Practitioner Notifed:: Dr. Harris Spoke With: Dr. Harris New Order Received: Yes - Notification Comment Comment: admit for labor I agree with the RN Medical Screening Exam: Yes Risk & Benefit of care provided described in d/c instruction: Yes Diagnosis: ENCOUNTER FOR FULL-TERM UNCOMPLICATED DELIVERY
[2019-03-23 20:15] LABS: Basophils % (A) 0 %; Eosinophils % (A) 1 %; HCT 36.7 % (34.0-46.0); HGB 11.6 gm/dL (11.4-16.0); Lymphocytes # (A) 1.2 k/uL (1.0-4.8); Lymphocytes % (A) 15 %; MCH 22.8 pg (25.0-35.0); MCHC 31.6 g/dL (31.0-37.0); Microcytosis Moderate; Monocytes # (A) 0.4 k/uL (0-1.0); Monocytes % (A) 5 %; Neutrophils # (A) 6.2 k/uL (1.3-7.7); Neutrophils % (A) 78 %; Platelet Count 194 k/uL (150-450); RDW 15.2 % (11.5-15.5)
[2019-03-23] MEDS ORDERED: SIMETHICONE 80 MG CHEWABLE PO PRN (21:39)
[2019-03-23] MEDS ORDERED: diphenhydrAMINE 25 MG CAP PO PRN (21:39)
[2019-03-23] MEDS ORDERED: LANOLIN CREAM 5 GM TUBE TOPICAL PRN (21:39)
[2019-03-23] MEDS ORDERED: BENZOCAINE/MENTHOL SPRAY 1 GM/SPRAY AEROSOL TOPICAL PRN (21:39)
[2019-03-23] MEDS ORDERED: WITCH HAZEL 1 EACH MED..PAD TOPICAL PRN (21:39)
[2019-03-23] MEDS ORDERED: HYDROCORTISONE 2.5% RECTAL CREAM 30 GM TUBE RECTAL PRN (21:39)
[2019-03-23] MEDS ORDERED: BISACODYL 10 MG SUPP RECTAL PRN (21:39)
[2019-03-23] MEDS ORDERED: diphenhydrAMINE 50 MG/ML 1 ML VIAL IVP PRN (21:39)
[2019-03-23] MEDS ORDERED: ZOLPIDEM 5 MG TAB PO PRN (21:39)
[2019-03-23] MEDS ORDERED: ACETAMINOPHEN TAB 325 MG TAB PO PRN (21:39)
--- NOTE | 2019-03-23 21:44 | P.PROBDLV ---
Vaginal Delivery Note - . Vaginal Delivery Note: Normal spontaneous vaginal delivery viable male infant Apgars 9 and 9 delivery time is 2127 hrs. Please see dictated H&P for intimate details of this patient's admission. Brief summary this pleasant 23-year-old 3 para 1 female 38-2/7 weeks gestation admitted to labor and delivery with complaints of regular painful contractions. Patient may have also had some leaking of fluid sometime night or Monday morning. On admission patient is 6 cm dilated has a positive amnio sure. heart tones are category 1. Rupture of a bag of juarez done for clear fluid. Patient quickly progresses to 9 cm and does get a half a milligram of Stadol for pain control. Patient thereafter gets to complete pushes for approximately 15 minutes. Patient pushes the head to the perineum. Posterior perineum was supported and we have controlled delivery of the infant's head over the intact perineum. Mouth and nares are bulb suctioned. There is no evidence of a nuchal cord. With gentle downward traction we have delivery the anterior and posterior shoulder and rest this infant's body. This is a vigorous viable male Apgars are 9 and 9 delivery time was 2127 hrs. After delivery of the the umbilical cord is allowed to quit pulsating is then doubly clamped and cut. The placenta is then spontaneously delivered intact. Inspection of the perineum shows no lacerations other than superficial periurethral. No repairs indicated. Blood loss is 1 50 mL. There are no complications. All counts are correct 3. Mother and are stable delivery room.
[2019-03-23] MEDS ORDERED: OXYTOCIN 20 UNITS/1000 ML NS 1,000 ML IV SCH (21:45)
[2019-03-23] MEDS: IBUPROFEN 600 MG TAB PO PRN (22:57)
[2019-03-23] MEDS ORDERED: AMPICILLIN 1,000 MG in SODIUM CHLORIDE 0.9% 50 ML IVPB SCH (23:00)
[2019-03-24] MEDS: IBUPROFEN 600 MG TAB PO PRN ×3 (04:51→18:32)
--- NOTE | 2019-03-24 07:35 | P.PNOBGVD ---
Subjective - Subjective Patient reports: Reports appetite normal, Reports voiding normally, Reports pain well controlled, Reports ambulating normally : doing well Objective - Latest Vital Signs Latest vital signs: Vital Signs Temp Pulse Resp BP 03/24/19 04:00 97.6 F 83 16 126/73 03/24/19 00:00 97.2 F L 93 16 136/73 03/23/19 23:30 97.0 F L 93 16 136/73 03/23/19 22:58 97.0 F L 91 16 133/68 03/23/19 22:45 97.2 F L 89 16 134/70 03/23/19 22:29 97.2 F L 99 16 126/66 03/23/19 22:15 97.1 F L 96 16 123/66 03/23/19 22:00 97.2 F L 108 H 16 134/77 03/23/19 19:39 98.0 F 100 16 124/91 03/23/19 19:20 98.0 F 80 16 124/91 03/23/19 19:00 97.4 F L 100 16 124/91 Intake and Output 03/23/19 03/24/19 03/24/19 22:59 06:59 14:59 Other: # Voids 2 1 Weight 66.678 kg - Exam Lungs: bilateral: normal Chest: Normal S1, Normal S2 Extremities: Present: normal Abdomen: Present: normal appearance, soft Uterus: Present: normal, firm - Labs Labs: Abnormal Lab Results - Last 24 Hours (Table) 03/23/19 Range/Units 19:15 MCV 72.0 L (80.0-100.0) fL MCH 22.8 L (25.0-35.0) pg Assessment and Plan Assessment: day #1. Patient is resting without complaints. Vital signs are stable and she is afebrile. Uterus is firm nontender and she is having normal lochia. My impression this is a normal course. Plan is to continue routine care discharge home tomorrow. (1) Normal labor Current Visit: No Status: Acute Code(s): O80 - ENCOUNTER FOR FULL-TERM UNCOMPLICATED DELIVERY SNOMED Code(s): 96345937 (2) 38 weeks gestation of Current Visit: Yes Status: Acute Code(s): Z3A.38 - 38 WEEKS GESTATION OF SNOMED Code(s): 31988659 (3) Prolonged premature rupture of membranes Current Visit: Yes Status: Acute Code(s): O42.00 - CAROL ROM, ONSET LABOR W/N 24 HR OF RUPT, UNSP WEEKS OF GEST SNOMED Code(s): 042249670
[2019-03-24] MEDS: SENNOSIDES-DOCUSATE SODIUM 1 EACH TAB PO SCH ×2 (08:00→20:20)
[2019-03-25 00:06] VITALS: RESP 16
--- NOTE | 2019-03-25 06:34 | P.PNOBGVD ---
Subjective - Subjective Patient reports: Reports appetite normal, Reports voiding normally, Reports pain well controlled, Reports ambulating normally : doing well Objective - Latest Vital Signs Latest vital signs: Vital Signs Temp Pulse Resp BP 03/25/19 00:00 97.8 F 99 16 123/75 03/24/19 20:00 97.7 F 98 18 130/82 03/24/19 15:40 98.0 F 85 20 123/73 03/24/19 12:00 97.8 F 80 20 122/76 03/24/19 08:00 98.2 F 82 20 121/79 Intake and Output 03/24/19 03/24/19 03/25/19 14:59 22:59 06:59 Intake Total 850 Balance 850 Intake: Oral 850 Other: # Voids 2 3 3 - Exam Lungs: bilateral: normal Chest: Normal S1, Normal S2 Extremities: Present: normal Abdomen: Present: normal appearance, soft Uterus: Present: normal, firm Assessment and Plan Assessment: Post day #2. Patient is resting without complaints. Vital signs are stable she's afebrile. Uterus is firm nontender and she is having normal lochia. I impression this is a normal course. Plan is to continue routine care and discharge home later today. (1) Normal labor Current Visit: No Status: Acute Code(s): O80 - ENCOUNTER FOR FULL-TERM UNCOMPLICATED DELIVERY SNOMED Code(s): 73020775 (2) 38 weeks gestation of Current Visit: Yes Status: Acute Code(s): Z3A.38 - 38 WEEKS GESTATION OF SNOMED Code(s): 69686041 (3) Prolonged premature rupture of membranes Current Visit: Yes Status: Acute Code(s): O42.00 - CAROL ROM, ONSET LABOR W/N 24 HR OF RUPT, UNSP WEEKS OF GEST SNOMED Code(s): 371771777
--- NOTE | 2019-03-25 06:46 | P.DS ---
Providers Date of admission: 03/23/19 18:56 Expected date of discharge: 03/25/19 Attending physician: Jeff Harris Primary care physician: Jeff Harris - Discharge Diagnosis(es) (1) Normal labor Current Visit: No Status: Acute (2) 38 weeks gestation of Current Visit: Yes Status: Acute (3) Prolonged premature rupture of membranes Current Visit: Yes Status: Acute Hospital Course: Please see dictated H&P for intimate details of this patient's admission. Brief summary is a pleasant 23-year-old 3 para 1 female 38-2/7 weeks gestation admitted to labor and delivery in active labor. She quickly goes on to have a vaginal delivery viable male . Please see dictated delivery note. day #1 patient is without complaints. day #2 she is felt stable for discharge home follow up with me in 6 weeks. Procedures: Normal spontaneous vaginal delivery Patient Condition at Discharge: Good Plan - Discharge Summary New Discharge Prescriptions: New Ibuprofen [Motrin] 600 mg PO Q6HR PRN #40 tab PRN Reason: Mild Pain Or Fever >= 100.5 No Action Pnv No.95/Ferrous Fum/Folic AC [ Multivitamin Tablet] 1 tab PO DAILY Discharge Medication List Pnv No.95/Ferrous Fum/Folic AC [ Multivitamin Tablet] 1 tab PO DAILY 03/23/19 [History] Ibuprofen [Motrin] 600 mg PO Q6HR PRN #40 tab 03/25/19 [Rx] Follow up Appointment(s)/Referral(s): Jeff Harris MD [Primary Care Provider] - 6 Weeks Patient Instructions/Handouts: Vaginal Delivery (DC) Activity/Diet/Wound Care/Special Instructions: No intercourse or anything per vagina for 6 weeks. Please call if any fever, chills, excessive vaginal bleeding, and/or abdominal pain. Discharge Disposition: HOME SELF-CARE
[2019-03-25] MEDS: IBUPROFEN 600 MG TAB PO PRN ×2 (07:35→18:44)
[2019-03-25] MEDS: SENNOSIDES-DOCUSATE SODIUM 1 EACH TAB PO SCH ×2 (07:35→20:31)
[2019-03-25 15:56] VITALS: BP 121/76; PULSE 84; TEMP 98.2
== END 2019-03-25 21:00 | disposition home or self-care (01) | DRG 807 ==
LOC: FBPOP 18:43 → 4FBP 18:56
PROVIDERS: ADMIT Obstetrics & Gynecology; ATTEND Obstetrics & Gynecology
PROC: 10E0XZZ Delivery of Products of Conception, External Approach (ICD-10-PCS; principal; 2019-03-23)
DX: O42.92 Full-term premature rupture of membranes, unspecified as to length of time between rupture and onset of labor (principal); Z37.0 Single live birth; O99.344 Other mental disorders complicating childbirth; F32.9 Major depressive disorder, single episode, unspecified; F41.9 Anxiety disorder, unspecified; F90.9 Attention-deficit hyperactivity disorder, unspecified type; Z3A.38 38 weeks gestation of pregnancy
CPT/HCPCS: 59025; 84112; 85025; 86850; 86900; 86901; 99213

== ENCOUNTER → 2020-10-15 | Outpatient (CLI) | payer BC, OTHER ==
[2020-10-15 20:45] LABS: Hepatitis B Surface AB- Quant 29.5 mIU/mL; Hepatitis B Surface Antibody Reactive (Non-Reactive); Hepatitis B Surface Antigen Non-Reactive (Non-Reactive); Hepatitis C IgG Antibody Non-Reactive (Non-Reactive)
[2020-10-16 11:09] LABS: HIV 2 AB Non-Reactive (Non-Reactive); HIV AB P24 Non-Reactive (Non-Reactive); HIV P24 AG Non-Reactive (Non-Reactive)
== END | disposition home or self-care (01) ==
LOC: LABWHC1 10:56
PROVIDERS: ATTEND Otolaryngology
DX: Z01.84 Encounter for antibody response examination (principal)
CPT/HCPCS: 36415; 86706; 86803; 87340; 87390

== ENCOUNTER → 2021-07-16 | Outpatient (CLI) | payer OTHER ==
--- NOTE | 2021-07-16 15:13 | XR ---
EXAMINATION TYPE: XR mandible limited <4V DATE OF EXAM: 07/16/2021 COMPARISON: NONE HISTORY: Right jaw popping TECHNIQUE: 2 views mandible FINDINGS: No definite acute fracture or dislocation is identified. CT is more sensitive. IMPRESSION: No definite acute fracture or dislocation is identified. CT is more sensitive.
== END | disposition home or self-care (01) ==
LOC: RADXRMAIN 14:00
PROVIDERS: ATTEND Family Medicine
DX: M26.69 Other specified disorders of temporomandibular joint (principal)
CPT/HCPCS: 70100

== ENCOUNTER → 2022-03-12 | Outpatient (CLI) | payer OTHER ==
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
== END | disposition home or self-care (01) ==
LOC: RADCTMAIN 07:02
PROVIDERS: ATTEND Family Medicine
DX: S06.0X0S Concussion without loss of consciousness, sequela (principal)
CPT/HCPCS: 70450

== ENCOUNTER → 2022-06-24 | Outpatient (CLI) | payer OTHER ==
--- NOTE | 2022-06-24 16:25 | CT ---
EXAMINATION TYPE: CT sinus wo con DATE OF EXAM: 06/24/2022 COMPARISON: None HISTORY: 27-year-old female S09.93XA, unspecified injury of face, Chronic sinusitis CT DLP: 599 mGycm Automated exposure control for dose reduction was used. TECHNIQUE: Noncontrast axial views of the paranasal sinuses were obtained. Coronal and sagittal refor matted images were obtained. FINDINGS: PARANASAL SINUSES: There are hypoplastic bilateral frontal sinuses. The maxillary, sphenoid, and ethmoid sinuses are clear with only trace mucosal thickening along the f rusty of the right maxillary sinus. There is no air-fluid level. Reactive feliciano- osteogenesis is not seen. There is no destruction of the osseous beckman of the paranasal sinuses. THE NASAL CAVITY: The osteomeatal complexes are patent. There is leftward nasal septal deviation. There is a segmental fracture of the left nasal bone with mild angulation and depression of 1 mm. Thi s may be a more subacute or chronic injury given the lack of overlying soft tissue swelling apparent on CT. The imaged brain and orbits are normal in appearance. The visualized mastoid air cells and middle ear cavities are well pneumatized. Reformatted images confirm above findings. IMPRESSION: 1. Segmental fracture of the left nasal bone with mild angulation and depression of 1 mm. This may be more subacute or chronic given the lack of overlying soft tissue swelling by CT. Clinically correlat e. 2. Leftward nasal septal deviation. 3. Only trace mucosal thickening along the floor the right maxillary sinus
== END | disposition home or self-care (01) ==
LOC: RADCTMAIN 13:20
PROVIDERS: ATTEND Otolaryngology
DX: S02.2XXA Fracture of nasal bones, initial encounter for closed fracture (principal); J34.2 Deviated nasal septum; J34.89 Other specified disorders of nose and nasal sinuses; X58.XXXA Exposure to other specified factors, initial encounter
CPT/HCPCS: 70486

== ENCOUNTER → 2023-02-21 | Outpatient (CLI) | payer OTHER ==
[2023-02-21 20:13] LABS: Basophils # (A) 0.06 X 10*3/uL (0.00-0.10); Basophils % (A) 1.2 %; Elliptocytes 2+; Eosinophils # (A) 0.03 X 10*3/uL (0.04-0.35); Eosinophils % (A) 0.6 %; HCT 40.7 % (37.2-46.3); Lymphocytes # (A) 1.96 X 10*3/uL (0.90-5.00); Lymphocytes % (A) 39.2 %; MCH 21.9 pg (27.0-32.0); MCHC 29.5 d/dL (32.0-37.0); MCV 74.4 FL (80.0-97.0); Mean Platelet Volume 10.7 FL (9.5-12.2); Monocytes # (A) 0.31 X 10*3/uL (0.20-1.00); Monocytes % (A) 6.2 %; NRBC Per 100 WBC 0 X 10*3/uL (0.00-0.01); Neutrophils # (A) 2.62 X 10*3/uL (1.80-7.70); Neutrophils % (A) 52.4 %; Platelet Count 273 X 10*3/uL (140-440); RBC 5.47 X 10*6/uL (4.10-5.20); RDW 15.9 % (11.5-14.5)
[2023-02-22 05:22] LABS: % Iron Saturation 25.59 (12.00-45.00); ALT 16 U/L (8-44); AST 17 U/L (13-35); Albumin 4.6 d/dL (3.8-4.9); Alkaline Phosphatase 46 U/L (41-126); BUN/Creat Ratio 11.12 Ratio (12.00-20.00); Blood Urea Nitrogen 8.9 mg/dL (9.0-27.0); Calcium 9.5 mg/dL (8.7-10.3); Carbon Dioxide 25.8 mmol/L (21.6-31.8); Chloride 106 mmol/L (96-109); Globulin 2.3 d/dL (1.6-3.3); Glucose 91 mg/dL (70-110); Iron 97 UG/DL (50-170); Potassium 4.5 mmol/L (3.5-5.5); Sodium 142 mmol/L (135-145); Total Bilirubin 0.3 mg/dL (0.3-1.2); Total Iron Binding Capacity 379 UG/DL (228-460); Total Protein 6.9 d/dL (6.2-8.2)
[2023-02-22 05:24] LABS: Chol/HDL Ratio 2.65 Ratio; LDL Cholesterol,Calculated 88.1 mg/dL (0.0-131.0); VLDL Calculation 7.18 mg/dL (5.00-40.00)
== END | disposition home or self-care (01) ==
LOC: LABWHC1 09:30
PROVIDERS: ATTEND Family Medicine
DX: Z01.411 Encounter for gynecological examination (general) (routine) with abnormal findings (principal); E61.1 Iron deficiency; E53.8 Deficiency of other specified B group vitamins
CPT/HCPCS: 36415; 80053; 80061; 82607; 83540; 83550; 84443; 85025